=== PATIENT | male | born 1990 | race American Indian/Alaskan Native ===

== ENCOUNTER 2016-11-21 11:38 | Emergency (ER) | payer OTHER ==
[2016-11-21 11:39] VITALS: BMI 31.1
[2016-11-21 11:56] VITALS: BP 138/79; PULSE 60; RESP 16; TEMP 99.4; O2SAT 100
[2016-11-21] MEDS ORDERED: Oxycodone/Acetaminophen 5/325 mg Tab PO STA (12:05)
[2016-11-21] MEDS ORDERED: TDAP Vaccine 0.5 mL Syr IM ONE (12:07)
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
[2016-11-21] MEDS ORDERED: Oxycodone/Acetaminophen 5/325 mg Tab ONE (12:13)
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
== END 2016-11-21 14:00 | disposition home or self-care (01) ==
LOC: ED 11:38
DX: Z04.1 Encounter for examination and observation following transport accident (principal); Z23 Encounter for immunization